=== PATIENT | female | born 1990 | race American Indian/Alaskan Native ===

== ENCOUNTER 2018-02-14 03:45 | Emergency (ER) | payer OTHER ==
[2018-02-14 06:47] VITALS: BP 104/65
[2018-02-14] MEDS ORDERED: TESSALON PERLES PO ONE (07:08)
--- NOTE | 2018-02-14 08:10 | Emergency Department Report ---
HPI - General Chief Complaint: Adult Asthma Time Seen by Provider: 02/14/18 06:41 - HPI HPI: The patient's was a 27 yo female with a history of asthma, who presents for evaluation of dyspnea. The patient reports dyspnea and wheezing since approximately 1 AM this morning, 5 hours prior to my evaluation, constant since onset, severe, exacerbated with exertion or activity. She also reports a nonproductive cough yesterday. The patient denies fever, chest pain, syncope, hemoptysis, unilateral leg swelling, oral contraceptive use, recent immobilization, history of DVT or PE, recent cancer. ED Past Medical Hx - Past Medical History Hx Hypertension: No Hx Congestive Heart Failure: No Hx Diabetes: No Hx Deep Vein Thrombosis: No Hx Renal Disease: No Hx Sickle Cell Disease: No Hx Seizures: No Hx Asthma: Yes Hx COPD: No Hx HIV: No Additional medical history: ANEMIA - Social History Smoking Status: Never Smoker Substance Use Type: None - Medications Home Medications: Home Medications Medication Instructions Recorded Confirmed Last Taken Type Ibuprofen [Motrin 800 MG tab] 800 mg PO Q6H PRN #30 tablet 06/20/14 Unknown Rx oxyCODONE /ACETAMINOPHEN [Percocet 1 tab PO Q4HR #30 tablet 06/20/14 Unknown Rx 5/325 mg] Amoxicillin/K Clav Tab [Augmentin 1 tab PO BID #20 tablet 02/15/15 Unknown Rx 875MG] Ibuprofen [Motrin 800 MG tab] 800 mg PO TID PRN #30 tablet 02/15/15 Unknown Rx Meclizine [Antivert] 25 mg PO TID PRN #20 tablet 02/15/15 Unknown Rx Ondansetron [Zofran Odt] 4 mg PO Q6H PRN #20 tab.rapdis 02/15/15 Unknown Rx ALBUTEROL Inhaler [ProAir HFA 2 puff IH QID PRN #1 inhalation 02/14/18 Unknown Rx Inhaler] Azithromycin [Zithromax Z-RAUDEL] 250 mg PO QDAY #6 tablet 02/14/18 Unknown Rx Phenylephrine/Dm/Acetaminop/GG 20 ml PO Q4HR PRN #180 liquid 02/14/18 Unknown Rx [Mucinex Imjz-Oif-Coeiyqadqs Lq] Prednisone [predniSONE 10 mg 10 mg PO .TAPER #1 tab.ds.pk 02/14/18 Unknown Rx (6-Day Pack, 21 Tabs)] ED Review of Systems ROS: Stated complaint: PAYAM Other details as noted in HPI Constitutional: denies: fever ENT: denies: throat or neck pain Respiratory: reports: cough, shortness of breath Cardiovascular: denies: chest pain Endocrine: denies unexplained weight loss or gain Gastrointestinal: denies: abdominal pain, nausea Genitourinary: denies: dysuria Musculoskeletal: denies: leg swelling Skin: denies: rash Neurological: denies: headache Hematological/Lymphatic: denies: easy bleeding or easy bruising Psych: denies sadness or hopelessness Physical Exam - Physical Exam Vital Signs: Vital Signs 02/14/18 02/14/18 04:06 06:46 Temperature 97.6 F Pulse Rate 105 H 112 H Respiratory 18 18 Rate Blood Pressure 109/69 Blood Pressure 109/69 104/65 [Right] O2 Sat by Pulse 97 98 Oximetry Physical Exam: General: well-nourished, well-developed, no acute distress Head: Normocephalic, atraumatic Eyes: normal sclera ENT: Mucous membranes are pale and dry Neck: No neck stiffness, no cervical adenopathy Respiratory: Mildly diminished breath sounds and mild wheezing present to apical lung martin bilaterally, no costal retractions, no respiratory distress, no rales, rhonchi or crackles Cardio: S1 and S2 present, no murmurs, rubs, gallops, capillary refill is delayed Abdomen: Normoactive bowel sounds, soft abdomen, no rigidity, no guarding or rebound tenderness Musc: No pitting edema Skin: No rash Neuro: no facial drooping, normal speech Psych: Normal affect ED Course Vital Signs 02/14/18 02/14/18 04:06 06:46 Temperature 97.6 F Pulse Rate 105 H 112 H Respiratory 18 18 Rate Blood Pressure 109/69 Blood Pressure 109/69 104/65 [Right] O2 Sat by Pulse 97 98 Oximetry ED Medical Decision Making - Medical Decision Making The patient was seen and examined by myself. The patient is placed on a monitoring coordinator and continuous pulse ox. On initial evaluation, the patient was found to be in no distress. Evaluation orders were placed. The patient was given in route via EMS an albuterol breathing treatment and IV solumedrol for txt of her asthma exacerbation. Chest x-ray negative for focal consolidation, pleural effusions, pulmonary congestion, pneumothorax, or other acute cardio pulmonary disease process. The patient was reevaluated and reported that their symptoms were markedly improved. On reexamination the patient is found to have normal respiratory rate and HR, now 99 on my bedside reassessment, and normal O2 sat of 98% on pulse oximetry, with no costal retractions or diminishment of breath sounds on auscultation. The patient is stable for discharge with outpatient follow-up. The patient is given follow-up and return instructions. The patient expressed understanding and agreed with the plan. The patient is given a prescription for steroids taper and an albuterol inhaler, and the patient is discharged in stable condition. Critical care attestation.: If time is entered above; I have spent that time in minutes in the direct care of this critically ill patient, excluding procedure time. ED Disposition Clinical Impression: Acute URI, Dehydration, mild Asthma exacerbation Qualifiers: Asthma severity: mild Asthma persistence: intermittent Qualified Code(s): J45.21 - Mild intermittent asthma with (acute) exacerbation Disposition: TO HOME OR SELFCARE Is pt being admited?: No Does the pt Need Aspirin: No Condition: Stable Instructions: Asthma (ED) Referrals: PRIMARY CARE, [Primary Care Provider] - 3-5 Days Time of Disposition: 07:09
--- NOTE | 2018-02-14 09:12 | XRay Report ---
PORTABLE CHEST INDICATION: Chest pain. COMPARISON: 02/15/2015 FINDINGS: Portable, frontal chest radiograph again demonstrates normal cardiomediastinal silhouette and clear, now well-expanded lungs. New bilateral nipple ornaments. Unremarkable bones. CONCLUSION: No acute disease. Thank you for the opportunity to participate in this patient's care.
== END 2018-02-14 07:51 | disposition home or self-care (01) ==
LOC: ED 03:45
DX: J45.21 Mild intermittent asthma with (acute) exacerbation (principal); J06.9 Acute upper respiratory infection, unspecified; E86.0 Dehydration; Z86.2 Personal history of diseases of the blood and blood-forming organs and certain disorders involving the immune mechanism
CPT/HCPCS: 71045; 93005; 93010